=== PATIENT | male | born 1955 | race Caucasian/White ===

== ENCOUNTER → 2016-08-03 | Outpatient (REF) ==
[~2016-08-03] MED LIST: TIMOLOL 0.5% OP10 ML OP; [UNRECOGNIZED DRUG - OTHER]
== END ==
LOC: ZLAB.WCH 15:00
DX: Z01.89 Encounter for other specified special examinations (principal)
CPT/HCPCS: G0103

== ENCOUNTER → 2016-12-21 | Outpatient (REF) | LOC: ZLAB.WCH 18:32 | DX: Z01.89 Encounter for other specified special examinations (principal) ==